=== PATIENT | male | born 1945 | race Hispanic/Latino ===

== ENCOUNTER 2018-12-29 22:48 | Emergency (ER) | payer MEDICARE ==
[2018-12-29 22:55] VITALS: BP 162/92
[2018-12-29] MEDS ORDERED: ZOFRAN IM ONE (23:03)
[2018-12-29] MEDS ORDERED: SUBLIMAZE IM ONE (23:03)
--- NOTE | 2018-12-29 23:07 | Emergency Department Report ---
HPI - General Chief Complaint: Extremity Injury, Upper Time Seen by Provider: 12/29/18 22:59 - HPI HPI: Room 20 The patient is a 73-year-old male presenting with a chief complaint right wrist pain. The patient states prior to arrival he slipped and fell landing on his right outstretched hand. Patient complains of pain in the right wrist and gives it a score of 8/10. Patient denies pain elsewhere and denies loss of consciousness. 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) - Surgical History Past Surgical History?: Yes Hx Cholecystectomy: Yes - Family History Family history: no significant - Social History Smoking Status: Never Smoker Substance Use Type: None - Medications Home Medications: Home Medications Medication Instructions Recorded Confirmed Last Taken Type Losartan [Cozaar] 100 mg PO QDAY 04/12/14 04/12/14 04/11/14 History Pyridoxine HCl (Vitamin B6) 50 mg PO QDAY 04/12/14 04/12/14 04/05/14 History [Vitamin B-6] HYDROcodone/APAP 5-325 [Alden 1 - 2 each PO Q6HR PRN #14 tablet 12/29/18 Unknown Rx 5/325] Ibuprofen [Motrin 800 MG tab] 800 mg PO Q8HR PRN #20 tablet 12/29/18 Unknown Rx ED Review of Systems ROS: Stated complaint: POSS RT WRIST FRACTURE Other details as noted in HPI Musculoskeletal: arthralgia Neurological: denies: headache Physical Exam - Physical Exam Vital Signs: Vital Signs 12/29/18 22:52 Temperature 98.2 F Pulse Rate 83 Respiratory 18 Rate Blood Pressure 162/92 O2 Sat by Pulse 98 Oximetry Physical Exam: GENERAL: The patient is well-developed well-nourished male lying on stretcher not appearing to be in acute distress. [] HEENT: Normocephalic. Atraumatic. NECK: Supple. CHEST/LUNGS: There is no respiratory distress noted. HEART/CARDIOVASCULAR: Regular. There is no tachycardia. 2+ right radial pulse SKIN: There is no skin tenting or laceration. There is no diaphoresis. NEURO: The patient is awake, alert, and oriented. The patient is cooperative. Patient able to make a fist but it causes pain. Sensation to light touch of the right hand intact. The patient has normal speech and gait. MUSCULOSKELETAL: There is tenderness to the right wrist but there is no deformity appreciated ED Course Vital Signs 12/29/18 22:52 Temperature 98.2 F Pulse Rate 83 Respiratory 18 Rate Blood Pressure 162/92 O2 Sat by Pulse 98 Oximetry ED Medical Decision Making - Radiology Data Radiology results: report reviewed (right wrist x-ray), image reviewed (right wrist x-ray) interpreted by me: Right wrist [id number] lucency distal radius. No definitive fracture appreciated. - Differential Diagnosis wrist fracture, scaphoid fracture, wrist sprain Critical care attestation.: If time is entered above; I have spent that time in minutes in the direct care of this critically ill patient, excluding procedure time. ED Disposition Clinical Impression: Right wrist injury Disposition: TO HOME OR SELFCARE Is pt being admited?: No Does the pt Need Aspirin: No Condition: Stable Instructions: Wrist Injury (ED), Scaphoid Fracture (ED) Additional Instructions: Return to the emergency department immediately should you develop worsening symptoms, fever, inability to tolerate food or liquid or any other concerns. Prescriptions: Ibuprofen [Motrin 800 MG tab] 800 mg PO Q8HR PRN #20 tablet PRN Reason: Pain , Severe (7-10) HYDROcodone/APAP 5-325 [Alden 5/325] 1 - 2 each PO Q6HR PRN #14 tablet PRN Reason: Pain Referrals: EDYTA HARDING MD [Staff Physician] - 7-10 days (Dr. Harding is an orthopedic surgeon. Please follow-up with him for further evaluation) Time of Disposition: 23:37
--- NOTE | 2018-12-29 23:52 | XRay Report ---
PROCEDURE: RIGHT WRIST, 3 VIEWS TECHNIQUE: RIGHT wrist radiographs, including AP, lateral, and oblique views. CPT 41821 HISTORY: Wrist pain COMPARISONS: None . FINDINGS: Fracture (s) and/or Dislocation(s): None . Alignment: Normal . Joint space(s): Mild narrowing of joint spaces . Soft tissues: Normal . Bone mineralization: Normal . Foreign bodies: None . IMPRESSION: There is no evidence of a fracture. Mild arthritis . This document is electronically signed by Connie Valente DO., December 29 2018 11:50:44 PM ET
== END 2018-12-29 23:57 | disposition home or self-care (01) ==
LOC: ED 22:48
DX: S69.91XA Unspecified injury of right wrist, hand and finger(s), initial encounter (principal); I10 Essential (primary) hypertension; Z90.49 Acquired absence of other specified parts of digestive tract; Z79.899 Other long term (current) drug therapy; Z85.038 Personal history of other malignant neoplasm of large intestine; W01.0XXA Fall on same level from slipping, tripping and stumbling without subsequent striking against object, initial encounter; Y93.89 Activity, other specified; Y92.89 Other specified places as the place of occurrence of the external cause; Y99.8 Other external cause status
CPT/HCPCS: 73110; 96372; 99284; J2405; J3010; 99283